=== PATIENT | female | born 1965 | race Two or more races ===

== ENCOUNTER 2016-11-30 11:40 | Inpatient (IN) | payer BC ==
[2016-11-30 13:03] VITALS: BMI 25.4
--- NOTE | 2016-11-30 16:32 | HP ---
COWS - Scale Resting Pulse: 0= [place] 80 or Below Sweatin= Chills/Flushing Restless Observation: 3= Extraneous Movement Pupil Size: 2= Moderately Dilated Bone or Joint Aches: 4=Acute Joint/Muscle Pain Runny Nose/ Eye Tearin= Runny Nose/Eyes GI Upset > 30mins: 1= Stomach Cramp (AND NAUSEA) Tremor Observation: 1= Tremor [place], Not Seen Yawning Observation: 1= 1-2x During Session Anxiety or Irritability: 2=Irritable/Anxious Goose Flesh Skin: 0=Smooth Skin COWS Score: 17 Admission ROS S - HPI Chief Complaint: DETOX TX FOR HEROIN DEPENDENCE Allergies/Adverse Reactions: Allergies Allergy/AdvReac Type Severity Reaction Status Date / Time No Known Allergies Allergy Verified 11/30/16 14:59 History of Present Illness: 51 Y/O H/ FEMALE WITH A HX OF HEROIN DEPENDENCE SEEKING DETOX [place] Exam Limitations: No Limitations - Ebola screening Have you traveled outside of the country in the last 21 days: No Have you had contact with anyone from an Ebola affected area: No Have you been sick,other than usual withdrawal symptoms: No Do you have a fever: No - Review of Systems Constitutional: Chills, Night Sweats, Changes in sleep (ON SLEEPING MED) EENT: reports: Blurred Vision (WEARS GLASSES), Tearing, Nose Congestion, Dental Problems (MISSING TEETH) Respiratory: reports: No Symptoms reported Cardiac: reports: Palpitations (IN THE PAST) GI: reports: Diarrhea, Nausea, Vomiting : reports: Frequency, Urgency Musculoskeletal: reports: Back Pain, Joint Pain, Muscle Pain, Other (HX SCOLIOSIS) Integumentary: reports: No Symptoms Reported Neuro: reports: Headache (HX MIGRAINES-TAKES PROPRANOLOL) Endocrine: reports: No Symptoms Reported Hematology: reports: No Symptoms Reported Psychiatric: reports: Orientated x3, Anxious, Depressed Other Systems: Reviewed and Negative Patient History - Patient Medical History Hx Anemia: No Hx Asthma: No Hx Chronic Obstructive Pulmonary Disease (COPD): No Hx Cancer: No Hx Cardiac Disorders: No Hx Congestive Heart Failure: No Hx Hypertension: No Hx Hypercholesterolemia: No Hx Pacemaker: No HX Cerebrovascular Accident: No Hx Seizures: No Hx Dementia: No Hx Diabetes: No Hx Gastrointestinal Disorders: No Hx Liver Disease: No Hx Genitourinary Disorders: No Hx Sexually Transmitted Disorders: No (NEGATIVE HX) Hx Renal Disease (ESRD): No Hx Thyroid Disease: No (HYPOTHYROIDISM ON SYNTHROID 25 MCG-NONCOMPLIANT) Hx Human Immunodeficiency Virus (HIV): No (negative hx in August 2013) Hx Hepatitis C: Yes (1995 tested positive; tx but not compliant) Hx Depression: Yes Hx Suicide Attempt: No (DENIES) Hx Bipolar Disorder: Yes (see med list) Hx Schizophrenia: No - Patient Surgical History Past Surgical History: Yes Hx Neurologic Surgery: No Hx Cataract Extraction: No Hx Cardiac Surgery: No Hx Lung Surgery: No Hx Breast Surgery: No Hx Breast Biopsy: No Hx Abdominal Surgery: No Hx Appendectomy: Yes (40 yrs ago) Hx Cholecystectomy: No Hx Genitourinary Surgery: No Hx Section: No Hx Orthopedic Surgery: No Other Surgical History: right eye sx in 10/2015 Anesthesia Reaction: No - PPD History Previous Implant?: Yes Documented Results: Negative w/proof Implanted On Prior [facility] Admission?: Yes Date: 12/23/15 Results: 0 mm PPD to be Administered?: No - Reproductive History Patient is a Female of Child Bearing Age (11 -55 yrs old): Yes Last Menstrual Period: 06/21/89 LMP comment: STOPPED AT AGE 25 Patient : No - Smoking Cessation Smoking history: Current every day smoker Have you smoked in the past 12 months: Yes Aproximately how many cigarettes per day: 10 Cigars Per Day: 0 Hx Chewing Tobacco Use: No Initiated information on smoking cessation: Yes 'Breaking Loose' booklet given: 11/30/16 - Substance & Tx. History Hx Alcohol Use: No (DENIES) Hx Substance Use: Yes (HEROIN) Substance Use Type: Heroin Hx Substance Use Treatment: Yes - Substances Abused Heroin Route: Inhalation Frequency: Daily Amount used: 2-3 bags Age of first use: 13 Date of Last Use: 11/29/16 Family Disease History - Family Disease History Family Disease History: CA: Grandparent (grandmother colon ca), Other: Mother ( heroin IV drug user,) Admission Physical Exam BHS - Vital Signs Vital Signs: Vital Signs - 24 hr 11/30/16 12:59 Temperature 96.5 F L Pulse Rate 76 Respiratory 18 Rate Blood Pressure 123/89 - Physical General Appearance: Yes: Moderate Distress, Irritable, Anxious HEENTM: Yes: EOMI, Normocephalic, [place], Pharynx Normal, Nasal Congestion, Rhinorrhea Respiratory: Yes: Chest Non-Tender, Lungs Clear, Normal Breath Sounds, No Respiratory Distress Neck: Yes: No masses,lesions,Nodules, Supple Breast: Yes: Breast Exam Deferred Cardiology: Yes: Regular Rhythm, Regular Rate, S1, S2 Abdominal: Yes: Normal Bowel Sounds, Non Tender, Soft Genitourinary: Yes: Other (N/C) Back: Yes: Within Normal Limits Musculoskeletal: Yes: full range of Motion, Gait Steady Extremities: Yes: Normal Range of Motion, Non-Tender 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, Fully Oriented, Alert Integumentary: Yes: Dry, Warm Lymphatic: Yes: Within Normal Limits - Diagnostic (1) Migraine Current Visit: Yes Status: Chronic Qualifiers: Migraine type: without aura (2) Nicotine dependence Current Visit: Yes Status: Acute Qualifiers: Nicotine product type: cigarettes Substance use status: in withdrawal Qualified Code(s): F17.213 - Nicotine dependence, cigarettes, with withdrawal (3) Hepatitis C Current Visit: Yes Status: Chronic Qualifiers: Viral hepatitis chronicity: chronic (4) Hypothyroid Current Visit: Yes Status: Chronic Comment: STATES NO CURRENT MED BUT PT WAS ON SYNTHROID--PT A POOR HISTORIAN. THYROID PROFILE DONE. PROVIDER TO F/U WITH RESULT AND RESTART MED IF NEEDED. Cleared for Admission [facility] - Detox or Rehab [facility] Level of Care: Medically Managed Detox Regimen/Protocol: Methadone [facility] Breath Alcohol Content Breath Alcohol Content: 0 Urine Pregancy Test - Result Urine Test Results: Negative- NO Line Present Urine Drug Screen - Results Drug Screen Negative: No Urine Drug Screen Results: OPI-Opiates
[2016-11-30] MEDS ORDERED: P-EPHED 60MG/TRIPROLIDI 2.5MG TABLET PO PRN (16:43)
[2016-11-30] MEDS ORDERED: IBUPROFEN 400 MG TABLET (FP) PO PRN (16:43)
[2016-11-30] MEDS ORDERED: ACETAMINOPHEN 325 MG TABLET (FP) PO PRN (16:43)
[2016-11-30] MEDS ORDERED: MAGNESIUM HYDROX 2400MG/30ML ORAL SUSPENSION 30 ML CUP PO PRN (16:43)
[2016-11-30] MEDS ORDERED: diphenhydrAMINE HCL 50 MG CAPSULE PO PRN (16:43)
[2016-11-30] MEDS ORDERED: LOPERAMIDE HCL 2 MG CAPSULE PO PRN (16:43)
[2016-11-30] MEDS ORDERED: MAG HYDROX/AL HYDROX/SIMETH 30 ML UNIT-DOSE CUP PO PRN (16:43)
[2016-11-30] MEDS ORDERED: MAGNESIUM CITRATE 300 ML BOTTLE PO PRN (16:43)
[2016-11-30] MEDS ORDERED: MENTHOL/PHENOL 1 EACH UD MM PRN (16:43)
[2016-11-30] MEDS ORDERED: guaiFENesin/D-METHORPHAN HB 10 ML UNIT-DOSE CUPS PO PRN (16:43)
[2016-11-30] MEDS ORDERED: METHADONE HCL 10 MG TABLET (FOR DETOX USE ONLY) PO ONE ×2 (17:30→23:00)
[2016-11-30] MEDS: diazePAM 5 MG TABLET PO PRN ×2 (18:18→22:35)
[2016-11-30] MEDS: NICOTINE 14 MG/24 HOURS TOPICAL PATCH TD SCH (18:26)
[2016-11-30 21:11] LABS: URINE APPEARANCE CLEAR; URINE BLOOD NEGATIVE (NEGATIVE); URINE COLOR AMBER; URINE GLUCOSE (UA) NEGATIVE (NEGATIVE); URINE KETONE NEGATIVE (NEGATIVE); URINE NITRITE NEGATIVE (NEGATIVE); URINE PROTEIN NEGATIVE (NEGATIVE); URINE UROBILINOGEN 4.0 E.U/dl E.U./dl (0.2-1.0)
[2016-11-30 21:15] LABS: URINE LEUK ESTERASE TRACE (NEGATIVE)
[2016-11-30 21:19] LABS: URINE BACTERIA RARE /hpf (NONE SEEN); URINE HYALINE CAST 1 /lpf; URINE MUCUS MANY; URINE RBC 2 /hpf (0-3); URINE WBC 8 /hpf (3-5)
[2016-11-30] MEDS: ARTIFICIAL TEARS (POLYVINYL ALCOHOL 1.4%) OPTH DROPS OU SCH (22:34)
[2016-11-30] MEDS: THIAMINE HCL 100 MG TABLET (FP) PO SCH (22:34)
[2016-11-30] MEDS: cloNIDine HCL 0.1 MG TABLET PO SCH (22:35)
[2016-12-01] MEDS ORDERED: METHADONE HCL 10 MG TABLET (FOR DETOX USE ONLY) PO ONE (10:00)
[2016-12-01 10:09] LABS: MCH 29.9 pg (25.7-33.7); MCHC 32.8 g/dl (32.0-36.0); MEAN CELL VOLUME 91.2 fl (80-96); MEAN PLT VOLUME 13.6 fl (7.5-11.1); PLATELET COUNT 125 K/MM3 (134-434); RDW 13.4 % (11.6-15.6); WHITE BLOOD COUNT 5.7 K/mm3 (4.0-10.0)
[2016-12-01] MEDS: cloNIDine HCL 0.1 MG TABLET PO SCH ×2 (10:56→22:23)
[2016-12-01] MEDS: diazePAM 5 MG TABLET PO PRN ×3 (10:56→22:23)
[2016-12-01] MEDS: PRENATAL VITAMINS W/ FOLIC ACID TABLET (FP) PO SCH (10:56)
--- NOTE | 2016-12-01 10:58 | EKG ---
Test Reason : Blood Pressure : / mmHG Vent. Rate : 063 BPM Atrial Rate : 063 BPM P-R Int : 146 ms QRS Dur : 092 ms QT Int : 438 ms P-R-T Axes : 045 010 014 degrees QTc Int : 448 ms NORMAL SINUS RHYTHM NONSPECIFIC T WAVE ABNORMALITY ABNORMAL ECG WHEN COMPARED WITH ECG OF 30-NOV-2016 17:46, T WAVE VARIATION Confirmed by PARAM DUARTE MD ([id number]) on 12/01/2016 10:57:51 AM Referred By: Beny Bryson Confirmed By:PARAM DUARTE MD
--- NOTE | 2016-12-01 10:58 | PN ---
BHS COWS - Scale Resting Pulse: 0= [place] 80 or Below Sweatin=Flushed/Facial Moisture Restless Observation: 1= Difficult to Sit Still Pupil Size: 0= Normal to Room Light Bone or Joint Aches: 2= Severe Diffuse Aches Runny Nose/ Eye Tearin= Runny Nose/Eyes GI Upset > 30mins: 0= None Tremor Observation of Outstretched Hands: 1= Tremor [place], Not Seen Yawning Observation: 1= 1-2x During Session Anxiety or Irritability: 1=Feels Anxious/Irritable Goose Flesh Skin: 0=Smooth Skin COWS Score: 10 S Progress Note (SOAP) Subjective: irritable agitation anxious sweats interrupted sleep Objective: 12/01/16 10:56 Vital Signs Temperature 98.2 F 12/01/16 09:58 Pulse Rate 64 12/01/16 09:58 Respiratory Rate 18 12/01/16 09:58 Blood Pressure 105/70 12/01/16 09:58 O2 Sat by Pulse Oximetry (%) Laboratory Tests 11/30/16 12/01/16 12/01/16 20:45 06:00 06:00 WBC 5.7 RBC 4.77 Hgb 14.3 D Hct 43.5 MCV 91.2 MCHC 32.8 RDW 13.4 Plt Count 125 L MPV 13.6 H D Sodium 144 Potassium 4.0 Chloride 108 H Urine Color Cynthia Urine Appearance Clear Urine pH 6.0 Ur Specific [place] 1.025 Urine Protein Negative Urine Glucose (UA) Negative Urine Ketones Negative Urine Blood Negative Urine Nitrite Negative Urine Bilirubin 2.0 Urine Urobilinogen 4.0 e.u/dl H Ur Leukocyte Esterase Trace H Urine RBC 2 Urine WBC 8 Ur Epithelial Cells Moderate Urine Bacteria Rare Hyaline Casts 1 Urine Mucus Many awake/alert ambulating no acute distress labs pending Assessment: 12/01/16 10:58 withdrawal sx Plan: continue detox increase fluids will f/u labs
[2016-12-01] MEDS: ARTIFICIAL TEARS (POLYVINYL ALCOHOL 1.4%) OPTH DROPS OU SCH ×2 (10:59→22:23)
--- NOTE | 2016-12-01 10:59 | EKG ---
Test Reason : Blood Pressure : / mmHG Vent. Rate : 067 BPM Atrial Rate : 067 BPM P-R Int : 132 ms QRS Dur : 092 ms QT Int : 396 ms P-R-T Axes : 047 006 026 degrees QTc Int : 418 ms NORMAL SINUS RHYTHM T WAVE ABNORMALITY, CONSIDER INFERIOR ISCHEMIA ABNORMAL ECG NO PREVIOUS ECGS AVAILABLE Confirmed by GERALD JUAREZ, PARAM ([id number]) on 12/01/2016 10:59:15 AM Referred By: Beny Bryson Confirmed By:PARAM DUARTE MD
[2016-12-01] MEDS: NICOTINE 14 MG/24 HOURS TOPICAL PATCH TD SCH (11:03)
[2016-12-01 11:13] LABS: ALBUMIN 3.7 g/dl (3.4-5.0); ALK PHOS 172 U/L (45-117); ANION GAP 11 (8-16); BILIRUBIN,TOTAL 0.7 mg/dL (0.2-1.0); CALCIUM 9.3 mg/dL (8.5-10.1); CO2 25 mmol/L (21-32); COCKROFT - GAULT 69.8785; CREATININE 0.9 mg/dL (0.55-1.02); GLUCOSE,RANDOM 81 mg/dL (74-106); SGOT/AST 90 U/L (15-37); SGPT/ALT 86 U/L (12-78); THYROID STIMULATING HORMONE 0.52 uIU/ml (0.358-3.74); THYROXINE (T4) 16.7 ug/dl (4.8-13.9); TOT PROT 7.4 g/dl (6.4-8.2)
[2016-12-01 11:23] LABS: T3 UPTAKE 24.5 % (30-39)
--- NOTE | 2016-12-01 14:14 | CONSULT ---
[facility] Psychiatric Consult - Data Date of interview: 12/01/16 Admission source: [facility] Identifying data: Another admission to [facility] for this 51 y/o female seeking detox treatment on for heroin dependence.Patient is single without children,homeless,unemployed and supported on SSI benefits. Substance Abuse History: - Smoking Cessation. Smoking history: Current every day smoker. Have you smoked in the past 12 months: Yes. Aproximately how many cigarettes per day: 10. Cigars Per Day: 0. Hx Chewing Tobacco Use: No. Initiated information on smoking cessation: Yes. 'Breaking Loose' booklet given : 11/30/16. - Substance & Tx. History. Hx Alcohol Use: No (DENIES). Hx Substance Use: Yes (HEROIN). Substance Use Type: Heroin. Hx Substance Use Treatment: Yes. - Substances Abused. Heroin. Route: Inhalation. Frequency : Daily. Amount used: 2-3 bags. Age of first use: 13. Date of Last Use: 11/29. Confirmed by patient. Medical History: Glaucoma,hypothyroidism and hepatitis C. Psychiatric History: Moderately sedated and disorganized historian.Patient presesnts with a history of multiple psychiatric hospitalizations ( [facility], [place]).Diagnosed with Bipolar Disorder and PTSD.Patient states that she is treated with seroquel 100 mg/daily + depakote 250 mg po bid + buspar (dose unknown).Ms Mcneill reports that she sees a psychiatrist at the " [facility] [place] " in [facility] (?).No reported history of suicide attempts. Physical/Sexual Abuse/Trauma History: Not discussed in this interview. Additional Comment: Urine Drug Screen Results: OPI-Opiates.Noted. Mental Status Exam - Mental Status Exam Alert and Oriented to: Time, Place (not oriented to,place;patient mistakenly believes that she is at [place]), Person Cognitive Function: Impaired (mildly) Patient Appearance: Well Groomed Mood: Withdrawn Affect: Constricted Patient Behavior: Sedated (moderately sedated), Fatigued Speech Pattern: Delayed, Slurred Voice Loudness: Moderately Soft/Quiet Thought Process: Disoriented Thought Disorder: Not Present Hallucinations: Denies Suicidal Ideation: Denies Homicidal Ideation: Denies Insight/Judgement: Poor Sleep: Well Appetite: Good Gait/Station: Other (slow but steady gait) Psychiatric Findings - Problem List ([place] 1, 2,3) (1) Opioid dependence Current Visit: Yes Status: Acute (2) Nicotine dependence Current Visit: Yes Status: Acute Qualifiers: Nicotine product type: cigarettes Substance use status: in withdrawal Qualified Code(s): F17.213 - Nicotine dependence, cigarettes, with withdrawal (3) Substance induced mood disorder Current Visit: Yes Status: Acute (4) Bipolar disorder Current Visit: Yes Status: Suspected Comment: Self-report. (5) Hepatitis C Current Visit: Yes Status: Chronic Qualifiers: Viral hepatitis chronicity: chronic (6) Hypothyroid Current Visit: Yes Status: Chronic Comment: STATES NO CURRENT MED BUT PT WAS ON SYNTHROID--PT A POOR HISTORIAN. THYROID PROFILE DONE. PROVIDER TO F/U WITH RESULT AND RESTART MED IF NEEDED. - Initial Treatment Plan Initial Treatment Plan: Psychoeducation.Detoxification.Will hold psychiatric medications (patient is too sedated and Low BP).Observation.Fall precautions.Medications are verified with [employer] at (scripts for seroquel 100 mg/hs + depakote 250 mg po tid on 11/24/16).No scripts necessary at discharge.Medications will be re-started upon improvement of cognitive status.
[2016-12-01] MEDS: THIAMINE HCL 100 MG TABLET (FP) PO SCH (22:34)
[2016-12-02] MEDS: LEVOTHYROXINE NA 25 MCG TABLET (FP) PO SCH (06:07)
[2016-12-02] MEDS ORDERED: METHADONE HCL 5 MG TABLET (FOR DETOX USE ONLY) PO ONE (10:00)
[2016-12-02] MEDS: ARTIFICIAL TEARS (POLYVINYL ALCOHOL 1.4%) OPTH DROPS OU SCH ×2 (11:00→22:53)
[2016-12-02] MEDS: PRENATAL VITAMINS W/ FOLIC ACID TABLET (FP) PO SCH (11:00)
[2016-12-02] MEDS: NICOTINE 14 MG/24 HOURS TOPICAL PATCH TD SCH (11:01)
[2016-12-02] MEDS: cloNIDine HCL 0.1 MG TABLET PO SCH ×2 (11:01→22:54)
--- NOTE | 2016-12-02 11:34 | PN ---
BHS COWS - Scale Resting Pulse: 0= [place] 80 or Below Sweatin=Flushed/Facial Moisture Restless Observation: 1= Difficult to Sit Still Pupil Size: 0= Normal to Room Light Bone or Joint Aches: 1= Mild Discomfort Runny Nose/ Eye Tearin= Nasal Congestion GI Upset > 30mins: 0= None Tremor Observation of Outstretched Hands: 1= Tremor [place], Not Seen Yawning Observation: 2= >3x During Session Anxiety or Irritability: 2=Irritable/Anxious Goose Flesh Skin: 0=Smooth Skin COWS Score: 10 S Progress Note (SOAP) Subjective: irritable agitation interrupted sleep sweats Objective: 12/02/16 11:33 Vital Signs Temperature 98.4 F 12/02/16 10:02 Pulse Rate 71 12/02/16 10:02 Respiratory Rate 20 12/02/16 10:02 Blood Pressure 106/72 12/02/16 10:02 O2 Sat by Pulse Oximetry (%) Laboratory Tests 11/30/16 12/01/16 12/01/16 20:45 06:00 06:00 WBC 5.7 RBC 4.77 Hgb 14.3 D Hct 43.5 MCV 91.2 MCHC 32.8 RDW 13.4 Plt Count 125 L MPV 13.6 H D Sodium 144 Potassium 4.0 Chloride 108 H Carbon Dioxide 25 Anion Gap 11 BUN 17 D Creatinine 0.9 Creat Clearance w eGFR > 60 Random Glucose 81 D Calcium 9.3 Total Bilirubin 0.7 D AST 90 H D ALT 86 H D Alkaline Phosphatase 172 H D Total Protein 7.4 Albumin 3.7 D TSH 0.52 Resin T3 Uptake 24.5 L* Urine Color Cynthia Urine Appearance Clear Urine pH 6.0 Ur Specific [place] 1.025 Urine Protein Negative Urine Glucose (UA) Negative Urine Ketones Negative Urine Blood Negative Urine Nitrite Negative Urine Bilirubin 2.0 Urine Urobilinogen 4.0 e.u/dl H Ur Leukocyte Esterase Trace H Urine RBC 2 Urine WBC 8 Ur Epithelial Cells Moderate Urine Bacteria Rare Hyaline Casts 1 Urine Mucus Many RPR Titer 12/01/16 06:00 WBC RBC Hgb Hct MCV MCHC RDW Plt Count MPV Sodium Potassium Chloride Carbon Dioxide Anion Gap BUN Creatinine Creat Clearance w eGFR Random Glucose Calcium Total Bilirubin AST ALT Alkaline Phosphatase Total Protein Albumin TSH Resin T3 Uptake Urine Color Urine Appearance Urine pH Ur Specific [place] Urine Protein Urine Glucose (UA) Urine Ketones Urine Blood Urine Nitrite Urine Bilirubin Urine Urobilinogen Ur Leukocyte Esterase Urine RBC Urine WBC Ur Epithelial Cells Urine Bacteria Hyaline Casts Urine Mucus RPR Titer Nonreactive awake/alert ambulating no acute distress Assessment: 12/02/16 11:34 withdrawal sx Plan: continue detox increase fluids
[2016-12-02] MEDS: diazePAM 5 MG TABLET PO PRN (16:36)
[2016-12-02] MEDS: THIAMINE HCL 100 MG TABLET (FP) PO SCH (22:54)
[2016-12-03] MEDS: LEVOTHYROXINE NA 25 MCG TABLET (FP) PO SCH (07:08)
[2016-12-03] MEDS ORDERED: METHADONE HCL 5 MG TABLET (FOR DETOX USE ONLY) PO ONE (10:00)
[2016-12-03] MEDS: PRENATAL VITAMINS W/ FOLIC ACID TABLET (FP) PO SCH (10:50)
[2016-12-03] MEDS: diazePAM 5 MG TABLET PO PRN (10:51)
[2016-12-03] MEDS: ARTIFICIAL TEARS (POLYVINYL ALCOHOL 1.4%) OPTH DROPS OU SCH ×2 (10:51→23:30)
[2016-12-03] MEDS: cloNIDine HCL 0.1 MG TABLET PO SCH ×2 (10:51→22:58)
[2016-12-03] MEDS: NICOTINE 14 MG/24 HOURS TOPICAL PATCH TD SCH (10:54)
[2016-12-03] MEDS ORDERED: hydrOXYzine PAMOATE 50 MG CAPSULE (FP) PO PRN (11:15)
[2016-12-03] MEDS ORDERED: DIVALPROEX SODIUM 250 MG TABLET E.C. (FP) PO STA (11:33)
--- NOTE | 2016-12-03 11:54 | PN ---
Psychiatric Progress Note Vital Signs: Vital Signs Period Temp Pulse Resp BP Sys/Mcnally Pulse Ox Last 24 Hr 98.4 F-99.5 F 64-75 18-18 109-138/75-77 Date of Session: 12/03/16 Chief Complaint:: My medications HPI: Patient has been hold psychiatric orders due to oversedated status, reports taking prior to admission: Depakote 250mg po tid. Seroquel 100mg po qhs. Buspar 10mg po bid. Clonidine 0.1 mg po bid Current Medications: Active Medications Generic Name Dose Route Start Last Admin Trade Name Freq PRN Reason Stop Dose Admin Acetaminophen 650 mg 11/30/16 16:43 Tylenol - PO Q4H PRN FEVER OR PAIN Al Hydroxide/Mg Hydroxide 30 ml 11/30/16 16:43 Mylanta Oral Suspension - PO Q6H PRN DYSPEPSIA Artificial Tears 1 drop 11/30/16 22:00 12/03/16 10:51 Artificial Tears OU 1 applic BID BOB Administration Buspirone HCl 10 mg 12/03/16 11:45 Buspar - PO BID BOB Clonidine 0.1 mg 11/30/16 22:00 12/03/16 10:51 Catapres - PO 0.1 mg BID BOB Administration Diazepam 10 mg 11/30/16 16:43 12/03/16 10:51 Valium - PO 12/03/16 16:42 10 mg Q4H PRN Administration WITHDRAWAL(CONT SUBST) Diphenhydramine HCl 50 mg 11/30/16 16:43 12/01/16 22:23 Benadryl - PO 50 mg HSMR1 PRN Administration INSOMNIA Divalproex Sodium 250 mg 12/03/16 22:00 Depakote - PO BID BOB Eucalyptus/Menthol/Phenol/Sorbitol 1 each 11/30/16 16:43 Cepastat Lozenge - MM Q4H PRN SORE THROAT Guaifenesin 10 ml 11/30/16 16:43 Robitussin Dm - PO Q6H PRN COUGH Hydroxyzine Pamoate 50 mg 12/03/16 11:15 Vistaril - PO Q4H PRN FOR ITCHING Ibuprofen 400 mg 11/30/16 16:43 Motrin - PO Q6H PRN SEVERE PAIN Levothyroxine Sodium 25 mcg 12/02/16 07:00 12/03/16 07:08 Synthroid - PO Not Given DAILY@0700 BOB Loperamide HCl 4 mg 11/30/16 16:43 Imodium - PO Q6H PRN DIARRHEA Magnesium Citrate 300 ml 11/30/16 16:43 Citroma - PO Q48H PRN CONSTIPATION Magnesium Hydroxide 30 ml 11/30/16 16:43 Milk Of Magnesia - PO DAILY PRN CONSTIPATION Methadone HCl 10 mg 12/04/16 10:00 Dolophine - PO 12/04/16 10:01 ONCE ONE Methadone HCl 5 mg 12/05/16 06:00 Dolophine - PO 12/05/16 06:01 ONCE@0600 ONE Nicotine 14 mg 11/30/16 17:30 12/03/16 10:54 Nicoderm Patch - TD 14 mg DAILY BOB Administration Nicotine Polacrilex 2 mg 11/30/16 16:43 Nicorette Gum - BC Q2H PRN NICOTINE REPLACEMENT RX Multivit/Folic Acid/Iron 1 tab 12/01/16 10:00 12/03/16 10:50 Vitamins (Sjr) - PO 1 tab DAILY BOB Administration Propranolol HCl 60 mg 12/01/16 10:00 12/03/16 10:51 Inderal La - PO 60 mg DAILY BOB Administration Pseudoephedrine/Triprolidine 1 combo 11/30/16 16:43 Actifed - PO TID PRN NASAL CONGESTION Quetiapine Fumarate 100 mg 12/03/16 22:00 Seroquel - PO HS BOB Thiamine HCl 100 mg 11/30/16 22:00 12/02/16 22:54 Vitamin B1 - PO Not Given HS BOB Medication(s) Change(s): Depakote 250mg po tid. Seroquel 100mg po qhs. Buspar 10mg po bid. Clonidine 0.1 mg po bid Mental Status Exam - Mental Status Exam Alert and Oriented to: Person Cognitive Function: Fair Patient Appearance: Well Groomed Mood: Suspicious, Withdrawn Affect: Flat Patient Behavior: Passive, Wandering Speech Pattern: Delayed Thought Process: Circumstantial Thought Disorder: Present Hallucinations: Denies Suicidal Ideation: Denies Homicidal Ideation: Denies Insight/Judgement: Fair Sleep: Difficulty falling asleep Appetite: Fair Muscle strength/Tone: Mild Hypotonicity Gait/Station: Shuffling Additional Comments: Depakote 250mg po tid. Seroquel 100mg po qhs. Buspar 10mg po bid. Clonidine 0.1 mg po bid Psychiatric Treatment Plan - Problem List (1) Nicotine dependence Current Visit: Yes Qualifiers: Nicotine product type: cigarettes Substance use status: in withdrawal Qualified Code(s): F17.213 - Nicotine dependence, cigarettes, with withdrawal (2) Opioid dependence Current Visit: Yes (3) Hypothyroid Current Visit: Yes Comment: STATES NO CURRENT MED BUT PT WAS ON SYNTHROID--PT A POOR HISTORIAN. THYROID PROFILE DONE. PROVIDER TO F/U WITH RESULT AND RESTART MED IF NEEDED. (4) Bipolar disorder Current Visit: Yes Comment: Self-report. (5) Weight decreased Current Visit: No (6) Bipolar 1 disorder Current Visit: No (7) Bipolar II disorder Current Visit: No (8) Cocaine dependence Current Visit: No Qualifiers: Substance use status: uncomplicated Qualified Code(s): F14.20 - Cocaine dependence, uncomplicated (9) PTSD (post-traumatic stress disorder) Current Visit: No Initial treatment plan: Depakote 250mg po tid. Seroquel 100mg po qhs. Buspar 10mg po bid. Clonidine 0.1 mg po bid
[2016-12-03] MEDS: busPIRone HCL 10 MG TABLET (FP) PO SCH ×2 (11:58→22:58)
--- NOTE | 2016-12-03 13:20 | PN ---
BHS Progress Note (SOAP) Subjective: irritable mood swings sweats agitation Objective: 12/03/16 13:19 Vital Signs Temperature 99.1 F 12/03/16 09:58 Pulse Rate 64 12/03/16 09:58 Respiratory Rate 18 12/03/16 09:58 Blood Pressure 138/75 12/03/16 09:58 O2 Sat by Pulse Oximetry (%) awake/alert ambulating no acute distress Assessment: 12/03/16 13:20 withdrawal sx pt was very difficult to re-direct pt to unit rules and what is expected by every one on the unit. pt became irrate, irritable, disruptive. counselor was involved in addressing the situation, how pt was doing the same. psych was ordered to evaluate pt and assist with her medication. Plan: continue detox increase fluids psych ordered.
[2016-12-03] MEDS: NICOTINE POLACRILEX 2 MG GUM BC PRN ×2 (18:29→21:25)
[2016-12-03] MEDS ORDERED: QUEtiapine FUMARATE 100 MG TABLET (FP) PO SCH (22:00)
[2016-12-03] MEDS: DIVALPROEX SODIUM 250 MG TABLET E.C. (FP) PO SCH (22:58)
[2016-12-03] MEDS: THIAMINE HCL 100 MG TABLET (FP) PO SCH (22:58)
[2016-12-04] MEDS: LEVOTHYROXINE NA 25 MCG TABLET (FP) PO SCH (07:06)
[2016-12-04] MEDS ORDERED: METHADONE HCL 10 MG TABLET (FOR DETOX USE ONLY) PO ONE (10:00)
--- NOTE | 2016-12-04 10:04 | PN ---
BHS Progress Note Note: pt is more cooperative and making reasonable decision regarding her aftercare. pt states she is feeling better and is ready to go to her next level of care rehab.
--- NOTE | 2016-12-04 10:07 | DS ---
[facility] Detox Discharge Summary Admission Date: 11/30/16 Discharge Date: 12/04/16 - History Present History: Cocaine Dependence, Opioid Dependence - Physical Exam Results Vital Signs: Vital Signs Temperature 97.7 F 12/04/16 08:01 Pulse Rate 69 12/04/16 08:01 Respiratory Rate 18 12/04/16 08:01 Blood Pressure 112/75 12/04/16 08:01 O2 Sat by Pulse Oximetry (%) - Treatment Hospital Course: Detox Protocol Followed, Detoxed Safely, Responded well, Discharged Condition Good, Rehab Referral Accepted - Medication Discharge Medications: Ambulatory Orders Quetiapine Fumarate [Seroquel -] 100 mg PO HS #30 tablet 12/31/14 Clonidine HCl [Catapres -] 0.1 mg PO BID 11/30/16 Dextran 70/Hypromellose [Artificial Tears Eye Drops] 1 drop OU BID 11/30/16 Divalproex [Depakote -] 250 mg PO TID 11/30/16 Propranolol HCl [Propranolol HCl ER] 60 mg PO DAILY 11/30/16 Buspirone HCl [Buspar -] 10 mg PO BID #60 tablet 12/03/16 Divalproex [Depakote -] 250 mg PO BID #60 tab 12/03/16 Quetiapine Fumarate [Seroquel] 100 mg PO HS #30 tablet 12/03/16 - Diagnosis (1) Nicotine dependence Current Visit: Yes Status: Chronic Qualifiers: Nicotine product type: cigarettes Substance use status: uncomplicated Qualified Code(s): F17.210 - Nicotine dependence, cigarettes, uncomplicated (2) Opioid dependence Current Visit: Yes Status: Chronic Qualifiers: Substance use status: uncomplicated Qualified Code(s): F11.20 - Opioid dependence, uncomplicated (3) Substance induced mood disorder Current Visit: Yes Status: Acute (4) Hepatitis C Current Visit: Yes Status: Chronic Qualifiers: Viral hepatitis chronicity: chronic (5) Hypothyroid Current Visit: Yes Status: Chronic (6) Migraine Current Visit: Yes Status: Chronic Qualifiers: Migraine type: without aura (7) Bipolar disorder Current Visit: Yes Status: Suspected (8) Weight decreased Current Visit: No Status: Acute (9) Bipolar 1 disorder Current Visit: No Status: Chronic (10) Bipolar II disorder Current Visit: No Status: Chronic (11) Cocaine dependence Current Visit: No Status: Chronic Qualifiers: Substance use status: uncomplicated Qualified Code(s): F14.20 - Cocaine dependence, uncomplicated (12) PTSD (post-traumatic stress disorder) Current Visit: No Status: Chronic - AMA Did Patient Leave Against Medical Advice: No
[2016-12-04 11:14] VITALS: BP 120/53; PULSE 63; TEMP 97.9
[2016-12-04] MEDS: ARTIFICIAL TEARS (POLYVINYL ALCOHOL 1.4%) OPTH DROPS OU SCH (11:50)
[2016-12-04] MEDS: busPIRone HCL 10 MG TABLET (FP) PO SCH (11:50)
[2016-12-04] MEDS: cloNIDine HCL 0.1 MG TABLET PO SCH (11:50)
[2016-12-04] MEDS: PRENATAL VITAMINS W/ FOLIC ACID TABLET (FP) PO SCH (11:51)
[2016-12-04] MEDS: NICOTINE 14 MG/24 HOURS TOPICAL PATCH TD SCH (11:51)
[2016-12-04] MEDS: DIVALPROEX SODIUM 250 MG TABLET E.C. (FP) PO SCH (11:51)
[2016-12-05] MEDS ORDERED: METHADONE HCL 5 MG TABLET (FOR DETOX USE ONLY) PO ONE (06:00)
== END 2016-12-04 11:50 | disposition home or self-care (01) | DRG 773 ==
LOC: YASAS 11:40 → Y6N 16:59
PROVIDERS: ADMIT Internal Medicine; ATTEND Internal Medicine
PROC: HZ2ZZZZ Detoxification Services for Substance Abuse Treatment (ICD-10-PCS; principal; 2016-11-30)
DX: F11.23 Opioid dependence with withdrawal (principal); F14.20 Cocaine dependence, uncomplicated; F17.210 Nicotine dependence, cigarettes, uncomplicated; F31.81 Bipolar II disorder; F43.10 Post-traumatic stress disorder, unspecified; E03.9 Hypothyroidism, unspecified; B18.2 Chronic viral hepatitis C; G43.909 Migraine, unspecified, not intractable, without status migrainosus; H40.9 Unspecified glaucoma; Z87.898 Personal history of other specified conditions
CPT/HCPCS: 36415; 80053; 81003; 81015; 84436; 84443; 84479; 85027; 86593; 93005; 93010

== ENCOUNTER 2017-02-02 13:46 | Inpatient (IN) | payer BC ==
[2017-02-02 15:10] VITALS: BMI 18.1
--- NOTE | 2017-02-02 16:41 | HP ---
COWS - Scale Resting Pulse: 1= [place] 81-100 Sweatin=Flushed/Facial Moisture Restless Observation: 3= Extraneous Movement Pupil Size: 2= Moderately Dilated Bone or Joint Aches: 2= Severe Diffuse Aches Runny Nose/ Eye Tearin= Runny Nose/Eyes GI Upset > 30mins: 3= Vomiting/Diarrhea Tremor Observation: 2= Slight Tremor Visible Yawning Observation: 2= >3x During Session Anxiety or Irritability: 2=Irritable/Anxious Goose Flesh Skin: 0=Smooth Skin COWS Score: 21 Admission ROS S - HPI Chief Complaint: i need help to stop using heroin Allergies/Adverse Reactions: Allergies Allergy/AdvReac Type Severity Reaction Status Date / Time No Known Allergies Allergy Verified 02/02/17 16:37 History of Present Illness: this 51 years old female with heroin dependence,seeking detox,last treatment 06/06 to 12/04/16 multiple migraine,menopause at age 25,bipolar disorder depression,dry eye syndrome, hypothyroidism,dtop medication 7 months ago,hepatitis c longest period of sobriety 16 months Exam Limitations: No Limitations - Ebola screening Have you traveled outside of the country in the last 21 days: No Have you had contact with anyone from an Ebola affected area: No Have you been sick,other than usual withdrawal symptoms: No Do you have a fever: No - Review of Systems Constitutional: Chills, Loss of Appetite, Night Sweats, Changes in sleep, Weakness, Unintentional Wgt. Loss EENT: reports: Tearing, Nose Congestion Respiratory: reports: No Symptoms reported Cardiac: reports: No Symptoms Reported GI: reports: Diarrhea, Nausea, Vomiting, Abdominal cramping : reports: No Symptoms Reported Musculoskeletal: reports: Back Pain, Joint Pain, Muscle Pain, Joint Stiffness Integumentary: reports: Dryness Neuro: reports: Headache, Tremors Endocrine: reports: No Symptoms Reported Hematology: reports: No Symptoms Reported Psychiatric: reports: No Sypmtoms Reported, Judgement Intact, Mood/Affect Appropiate, Depressed, other (bipolar disoeder) Patient History - Patient Medical History Hx Anemia: No Hx Asthma: No Hx Chronic Obstructive Pulmonary Disease (COPD): No Hx Cancer: No Hx Cardiac Disorders: No Hx Congestive Heart Failure: No Hx Hypertension: No Hx Hypercholesterolemia: No Hx Pacemaker: No HX Cerebrovascular Accident: No Hx Seizures: No Hx Dementia: No Hx Diabetes: No Hx Gastrointestinal Disorders: No Hx Liver Disease: No Hx Genitourinary Disorders: No Hx Sexually Transmitted Disorders: No (NEGATIVE HX) Hx Renal Disease (ESRD): No Hx Thyroid Disease: No (HYPOTHYROIDISM ON SYNTHROID 25 MCG-NONCOMPLIANT) Hx Human Immunodeficiency Virus (HIV): No (negative hx in August 2013) Hx Hepatitis C: Yes (1996 tested positive; tx but not compliant) Hx Depression: Yes (bipolar disorder) Hx Suicide Attempt: No (DENIES) Hx Bipolar Disorder: Yes (see med list) Hx Schizophrenia: No Other Medical History: no suicidal,no homicidal,stop taking thyroid 6 months ago - Patient Surgical History Past Surgical History: Yes Hx Neurologic Surgery: No Hx Cataract Extraction: No Hx Cardiac Surgery: No Hx Lung Surgery: No Hx Breast Surgery: No Hx Breast Biopsy: No Hx Abdominal Surgery: No Hx Appendectomy: Yes (40 yrs ago) Hx Cholecystectomy: No Hx Genitourinary Surgery: No Hx Section: No Hx Orthopedic Surgery: No Other Surgical History: right eye sx in 10/2015 Anesthesia Reaction: No - PPD History Previous Implant?: Yes Documented Results: Negative w/o proof Implanted On Prior R Admission?: Yes Date: 12/23/15 Results: 0 mm PPD to be Administered?: Yes - Reproductive History Patient is a Female of Child Bearing Age (11 -55 yrs old): Yes Last Menstrual Period: 06/21/89 Patient : No - Smoking Cessation Smoking history: Current every day smoker Have you smoked in the past 12 months: Yes Aproximately how many cigarettes per day: 10 Cigars Per Day: 0 Hx Chewing Tobacco Use: No Initiated information on smoking cessation: Yes 'Breaking Loose' booklet given: 02/02/17 - Substance & Tx. History Hx Alcohol Use: No Hx Substance Use: Yes Substance Use Type: Heroin Hx Substance [facility] - Substances Abused Heroin Route: Inhalation Frequency: Daily Amount used: 2-3 bags Age of first use: 13 Date of Last Use: 02/02/17 Family Disease History - Family Disease History Family Disease History: CA: Grandparent (grandmother colon ca), Other: Mother ( heroin IV drug user,) Admission Physical Exam BHS - Vital Signs Vital Signs: Vital Signs - 24 hr 02/02/17 15:07 Temperature 98.0 F Pulse Rate 86 Respiratory 16 Rate Blood Pressure 126/86 - Physical General Appearance: Yes: Moderate Distress, Tremorous, Irritable, Sweating, Anxious HEENTM: Yes: Normal ENT Inspection, Normocephalic, [place], Pharynx Normal Respiratory: Yes: Lungs Clear, Normal Breath Sounds, No Respiratory Distress Neck: Yes: Within Normal Limits, Supple, Trachea in good position Breast: Yes: Breast Exam Deferred Cardiology: Yes: Within Normal Limits, Regular Rhythm, Regular Rate, S1, S2 Abdominal: Yes: Within Normal Limits, Normal Bowel Sounds, Non Tender, Flat, Soft Genitourinary: Yes: Within Normal Limits Back: Yes: Muscle Spasm Musculoskeletal: Yes: Back pain, Joint Stiffness, Muscle Pain Extremities: Yes: Tremors Neurological: Yes: joint special operations II-XII NML intact, Fully Oriented, Alert, Motor Strength 5/5 Integumentary: Yes: Dry Lymphatic: Yes: Within Normal Limits - Diagnostic (1) Opioid dependence with withdrawal Current Visit: Yes Status: Acute (2) Weight decreased Current Visit: No Status: Acute (3) Hepatitis C Current Visit: No Status: Chronic Qualifiers: Viral hepatitis chronicity: chronic (4) Hypothyroid Current Visit: No Status: Chronic Comment: STATES NO CURRENT MED BUT PT WAS ON SYNTHROID--PT A POOR HISTORIAN. THYROID PROFILE DONE. PROVIDER TO F/U WITH RESULT AND RESTART MED IF NEEDED. (5) Migraine Current Visit: No Status: Chronic Qualifiers: Migraine type: without aura (6) PTSD (post-traumatic stress disorder) Current Visit: No Status: Chronic (7) Nicotine dependence Current Visit: No Status: Chronic Qualifiers: Nicotine product type: cigarettes Substance use status: uncomplicated Qualified Code(s): F17.210 - Nicotine dependence, cigarettes, uncomplicated (8) Bipolar disorder Current Visit: No Status: Suspected Comment: Self-report. Cleared for Admission S - Detox or Rehab [facility] Level of Care: Medically Managed Detox Regimen/Protocol: Methadone [facility] Breath Alcohol Content Breath Alcohol Content: 0 Urine Pregancy Test - Result Urine Test Results: Negative- NO Line Present Urine Drug Screen - Results Drug Screen Negative: No Urine Drug Screen Results: OPI-Opiates, MTD-Methadone
[2017-02-02] MEDS ORDERED: hydrOXYzine PAMOATE 25 MG CAPSULE (FP) PO PRN (17:20)
[2017-02-02] MEDS ORDERED: MENTHOL/PHENOL 1 EACH UD MM PRN (17:20)
[2017-02-02] MEDS ORDERED: ACETAMINOPHEN 325 MG TABLET (FP) PO PRN (17:20)
[2017-02-02] MEDS ORDERED: guaiFENesin/D-METHORPHAN HB 10 ML UNIT-DOSE CUPS PO PRN (17:20)
[2017-02-02] MEDS ORDERED: IBUPROFEN 400 MG TABLET (FP) PO PRN (17:20)
[2017-02-02] MEDS ORDERED: MAGNESIUM CITRATE 300 ML BOTTLE PO PRN (17:20)
[2017-02-02] MEDS ORDERED: P-EPHED 60MG/TRIPROLIDI 2.5MG TABLET PO PRN (17:20)
[2017-02-02] MEDS ORDERED: MAG HYDROX/AL HYDROX/SIMETH 30 ML UNIT-DOSE CUP PO PRN (17:20)
[2017-02-02] MEDS ORDERED: MAGNESIUM HYDROX 2400MG/30ML ORAL SUSPENSION 30 ML CUP PO PRN (17:20)
[2017-02-02] MEDS ORDERED: LOPERAMIDE HCL 2 MG CAPSULE PO PRN (17:20)
[2017-02-02] MEDS ORDERED: METHADONE HCL 10 MG TABLET (FOR DETOX USE ONLY) PO ONE ×2 (18:15→23:00)
[2017-02-02] MEDS ORDERED: QUEtiapine FUMARATE 100 MG TABLET (FP) PO ONE (22:00)
[2017-02-02] MEDS: cloNIDine HCL 0.1 MG TABLET PO SCH (22:44)
[2017-02-02] MEDS: ARTIFICIAL TEARS (POLYVINYL ALCOHOL 1.4%) OPTH DROPS OS SCH (22:44)
[2017-02-02] MEDS: THIAMINE HCL 100 MG TABLET (FP) PO SCH (22:45)
[2017-02-02 23:21] LABS: URINE APPEARANCE SLCLOUDY; URINE BLOOD NEGATIVE (NEGATIVE); URINE COLOR AMBER; URINE GLUCOSE (UA) NEGATIVE (NEGATIVE); URINE KETONE NEGATIVE (NEGATIVE); URINE LEUK ESTERASE NEGATIVE (NEGATIVE); URINE NITRITE NEGATIVE (NEGATIVE); URINE PROTEIN NEGATIVE (NEGATIVE); URINE UROBILINOGEN 4.0 E.U/dl mg/dL (0.2-1.0)
[2017-02-03] MEDS ORDERED: METHADONE HCL 10 MG TABLET (FOR DETOX USE ONLY) PO ONE (10:00)
[2017-02-03 10:21] LABS: MCH 29.5 pg (25.7-33.7); MCHC 32.8 g/dl (32.0-36.0); MEAN CELL VOLUME 90.1 fl (80-96); MEAN PLT VOLUME 13.5 fl (7.5-11.1); PLATELET COUNT 125 K/MM3 (134-434); RDW 12.6 % (11.6-15.6); WHITE BLOOD COUNT 5.1 K/mm3 (4.0-10.0)
[2017-02-03 10:33] LABS: ALBUMIN 3.5 g/dl (3.4-5.0); ANION GAP 5 (8-16); CALCIUM 8.9 mg/dL (8.5-10.1); CO2 29 mmol/L (21-32); CREATININE 0.8 mg/dL (0.55-1.02); GLUCOSE,RANDOM 89 mg/dL (74-106); SGOT/AST 75 U/L (15-37); SGPT/ALT 80 U/L (12-78)
[2017-02-03 10:35] LABS: ALK PHOS 159 U/L (45-117); BILIRUBIN,TOTAL 0.4 mg/dL (0.2-1.0); TOT PROT 6.9 g/dl (6.4-8.2)
--- NOTE | 2017-02-03 10:36 | CONSULT ---
[facility] Psychiatric Consult - Data Date of interview: 02/03/17 Admission source: [facility] Identifying data: This is 51 years old female with history of Bipolar disorder, PTSD, intoxicated with: Opioids, Copcaine and Nicotine Substance Abuse History: - Smoking Cessation. Smoking history: Current every day smoker. Have you smoked in the past 12 months: Yes. Aproximately how many cigarettes per day: 10. Cigars Per Day: 0. Hx Chewing Tobacco Use: No. Initiated information on smoking cessation: Yes. 'Breaking Loose' booklet given : 02/02/17. - Substance & Tx. History. Hx Alcohol Use: No. Hx Substance Use: Yes. Substance Use Type: Heroin. Hx Substance Use Treatment: Yes [facility] - Substances Abused. Heroin. Route: Inhalation. Frequency: Daily. Amount used: 2-3 bags. Age of first use: 13. Date of Last Use: 02/02/17 Medical History: Weight loss history, Hypothyroiditis, HepC+, Migraine history Psychiatric History: Patient reports history of Bipolar disorder, PTSD, reports most recent psychiatorc admission at [facility] on 02/2016 for safety, reports currently taking: Buspar 10mg po bid. Seroquel 100mg po qhs Physical/Sexual Abuse/Trauma History: Denies Additional Comment: Buspar 10mg po bid. Seroquel 100mg po qhs Mental Status Exam - Mental Status Exam Alert and Oriented to: Person Cognitive Function: Fair Patient Appearance: Unkempt Mood: Sad Speech Pattern: Delayed Voice Loudness: Mildly Soft/Quiet Thought Process: Circumstantial Thought Disorder: Being Controlled Hallucinations: Denies Suicidal Ideation: Denies Homicidal Ideation: Denies Insight/Judgement: Fair Sleep: Difficulty falling asleep Appetite: Weight loss Muscle strength/Tone: Mild Hypotonicity Gait/Station: Normal Additional Comments: Buspar 10mg po bid. Seroquel 100mg po qhs Psychiatric Findings - Problem List ([place] 1, 2,3) (1) Opioid dependence with withdrawal Current Visit: Yes Status: Acute (2) Bipolar 1 disorder Current Visit: No Status: Chronic (3) Cocaine dependence Current Visit: No Status: Chronic Qualifiers: Substance use status: uncomplicated Qualified Code(s): F14.20 - Cocaine dependence, uncomplicated (4) Hypothyroid Current Visit: No Status: Chronic Comment: STATES NO CURRENT MED BUT PT WAS ON SYNTHROID--PT A POOR HISTORIAN. THYROID PROFILE DONE. PROVIDER TO F/U WITH RESULT AND RESTART MED IF NEEDED. (5) Nicotine dependence Current Visit: No Status: Chronic Qualifiers: Nicotine product type: cigarettes Substance use status: uncomplicated Qualified Code(s): F17.210 - Nicotine dependence, cigarettes, uncomplicated (6) Opioid dependence Current Visit: No Status: Chronic Qualifiers: Substance use status: uncomplicated Qualified Code(s): F11.20 - Opioid dependence, uncomplicated (7) PTSD (post-traumatic stress disorder) Current Visit: No Status: Chronic (8) Bipolar disorder Current Visit: No Status: Suspected Comment: Self-report. (9) Drug-induced mood disorder Current Visit: Yes Status: Acute - Initial Treatment Plan Initial Treatment Plan: Buspar 10mg po bid. Seroquel 100mg po qhs
[2017-02-03] MEDS: PRENATAL VITAMINS W/ FOLIC ACID TABLET (FP) PO SCH (10:53)
[2017-02-03] MEDS: cloNIDine HCL 0.1 MG TABLET PO SCH ×2 (10:53→22:18)
[2017-02-03] MEDS: ARTIFICIAL TEARS (POLYVINYL ALCOHOL 1.4%) OPTH DROPS OS SCH ×2 (10:53→22:19)
[2017-02-03] MEDS: busPIRone HCL 10 MG TABLET (FP) PO SCH ×2 (10:55→22:18)
[2017-02-03] MEDS: NICOTINE POLACRILEX 2 MG GUM BC PRN ×2 (10:57→22:21)
[2017-02-03] MEDS: diazePAM 5 MG TABLET PO PRN ×2 (10:57→22:18)
--- NOTE | 2017-02-03 11:32 | PN ---
BHS COWS - Scale Resting Pulse: 0= [place] 80 or Below Sweatin=Flushed/Facial Moisture Restless Observation: 1= Difficult to Sit Still Pupil Size: 0= Normal to Room Light Bone or Joint Aches: 2= Severe Diffuse Aches Runny Nose/ Eye Tearin= Nasal Congestion GI Upset > 30mins: 1= Stomach Cramp Tremor Observation of Outstretched Hands: 2= Slight Tremor Visible Yawning Observation: 1= 1-2x During Session Anxiety or Irritability: 2=Irritable/Anxious Goose Flesh Skin: 0=Smooth Skin COWS Score: 12 BHS Progress Note (SOAP) Subjective: agitation anxiety sweats shakes Objective: 02/03/17 11:33 Vital Signs Temperature 97.3 F L 02/03/17 06:24 Pulse Rate 58 L 02/03/17 06:24 Respiratory Rate 16 02/03/17 06:24 Blood Pressure 122/90 02/03/17 06:24 O2 Sat by Pulse Oximetry (%) Laboratory Tests 02/02/17 02/03/17 02/03/17 23:11 06:00 06:00 WBC 5.1 RBC 4.76 Hgb 14.0 Hct 42.9 MCV 90.1 MCH 29.5 MCHC 32.8 RDW 12.6 Plt Count 125 L MPV 13.5 H Sodium 141 Potassium 3.5 Chloride 107 Carbon Dioxide 29 Anion Gap 5 L BUN 12 D Creatinine 0.8 Creat Clearance w eGFR > 60 Random Glucose 89 Calcium 8.9 Total Bilirubin 0.4 D AST 75 H ALT 80 H Alkaline Phosphatase 159 H Total Protein 6.9 Albumin 3.5 TSH Free T4 Resin T3 Uptake Urine Color Cynthia Urine Appearance Slcloudy Urine pH 5.0 Urine Protein Negative Urine Glucose (UA) Negative Urine Ketones Negative Urine Blood Negative Urine Nitrite Negative Urine Bilirubin 2.0 Urine Urobilinogen 4.0 e.u/dl H Ur Leukocyte Esterase Negative 02/03/17 06:00 WBC RBC Hgb Hct MCV MCH MCHC RDW Plt Count MPV Sodium Potassium Chloride Carbon Dioxide Anion Gap BUN Creatinine Creat Clearance w eGFR Random Glucose Calcium Total Bilirubin AST ALT Alkaline Phosphatase Total Protein Albumin TSH Cancelled Free T4 Cancelled Resin T3 Uptake Cancelled Urine Color Urine Appearance Urine pH Urine Protein Urine Glucose (UA) Urine Ketones Urine Blood Urine Nitrite Urine Bilirubin Urine Urobilinogen Ur Leukocyte Esterase awake/alert ambulating no acute distress Assessment: 02/03/17 11:33 withdrawal sx Plan: continue detox increase fluids
[2017-02-03 14:31] LABS: T3 UPTAKE 23.5 % (30-39)
[2017-02-03 14:38] LABS: THYROID STIMULATING HORMONE 1.02 uIU/ml (0.358-3.74)
--- NOTE | 2017-02-03 20:01 | EKG ---
Test Reason : Blood Pressure : / mmHG Vent. Rate : 064 BPM Atrial Rate : 064 BPM P-R Int : 154 ms QRS Dur : 104 ms QT Int : 410 ms P-R-T Axes : 048 004 024 degrees QTc Int : 422 ms NORMAL SINUS RHYTHM NORMAL ECG WHEN COMPARED WITH ECG OF 01-DEC-2016 06:04, NO SIGNIFICANT CHANGE WAS FOUND Confirmed by YOAV CHANDLER MD ([id number]) on 02/03/2017 8:01:14 PM Referred By: Confirmed By:YOAV CHANDLER MD
[2017-02-03] MEDS: THIAMINE HCL 100 MG TABLET (FP) PO SCH (22:18)
[2017-02-03] MEDS: QUEtiapine FUMARATE 100 MG TABLET (FP) PO SCH (22:18)
[2017-02-04] MEDS ORDERED: METHADONE HCL 5 MG TABLET (FOR DETOX USE ONLY) PO ONE (10:00)
[2017-02-04] MEDS: busPIRone HCL 10 MG TABLET (FP) PO SCH ×2 (10:41→22:18)
[2017-02-04] MEDS: diazePAM 5 MG TABLET PO PRN ×2 (10:41→16:55)
[2017-02-04] MEDS: cloNIDine HCL 0.1 MG TABLET PO SCH ×2 (10:41→22:18)
[2017-02-04] MEDS: PRENATAL VITAMINS W/ FOLIC ACID TABLET (FP) PO SCH (10:41)
[2017-02-04] MEDS: ARTIFICIAL TEARS (POLYVINYL ALCOHOL 1.4%) OPTH DROPS OS SCH ×2 (10:42→22:18)
[2017-02-04] MEDS: NICOTINE POLACRILEX 2 MG GUM BC PRN ×2 (10:45→22:21)
--- NOTE | 2017-02-04 11:33 | PN ---
BHS COWS - Scale Resting Pulse: 1= [place] 81-100 Sweatin=Flushed/Facial Moisture Restless Observation: 1= Difficult to Sit Still Pupil Size: 0= Normal to Room Light Bone or Joint Aches: 2= Severe Diffuse Aches Runny Nose/ Eye Tearin= Nasal Congestion GI Upset > 30mins: 0= None Tremor Observation of Outstretched Hands: 1= Tremor [place], Not Seen Yawning Observation: 2= >3x During Session Anxiety or Irritability: 2=Irritable/Anxious Goose Flesh Skin: 0=Smooth Skin COWS Score: 12 BHS Progress Note (SOAP) Subjective: sleepy tired interrupted sleep agitation sweats Objective: 02/04/17 11:32 Vital Signs Temperature 98.2 F 02/04/17 10:40 Pulse Rate 81 02/04/17 10:40 Respiratory Rate 18 02/04/17 10:40 Blood Pressure 118/75 02/04/17 10:40 O2 Sat by Pulse Oximetry (%) Laboratory Tests 02/02/17 02/03/17 02/03/17 23:11 06:00 06:00 WBC 5.1 RBC 4.76 Hgb 14.0 Hct 42.9 MCV 90.1 MCH 29.5 MCHC 32.8 RDW 12.6 Plt Count 125 L MPV 13.5 H Sodium 141 Potassium 3.5 Chloride 107 Carbon Dioxide 29 Anion Gap 5 L BUN 12 D Creatinine 0.8 Creat Clearance w eGFR > 60 Random Glucose 89 Calcium 8.9 Total Bilirubin 0.4 D AST 75 H ALT 80 H Alkaline Phosphatase 159 H Total Protein 6.9 Albumin 3.5 TSH 1.02 D Free T4 1.10 Resin T3 Uptake 23.5 L* D Urine Color Cynthia Urine Appearance Slcloudy Urine pH 5.0 Ur Specific [place] 1.025 Urine Protein Negative Urine Glucose (UA) Negative Urine Ketones Negative Urine Blood Negative Urine Nitrite Negative Urine Bilirubin 2.0 Urine Urobilinogen 4.0 e.u/dl H Ur Leukocyte Esterase Negative RPR Titer 02/03/17 02/03/17 06:00 06:00 WBC RBC Hgb Hct MCV MCH MCHC RDW Plt Count MPV Sodium Potassium Chloride Carbon Dioxide Anion Gap BUN Creatinine Creat Clearance w eGFR Random Glucose Calcium Total Bilirubin AST ALT Alkaline Phosphatase Total Protein Albumin TSH Cancelled Free T4 Cancelled Resin T3 Uptake Cancelled Urine Color Urine Appearance Urine pH Ur Specific [place] Urine Protein Urine Glucose (UA) Urine Ketones Urine Blood Urine Nitrite Urine Bilirubin Urine Urobilinogen Ur Leukocyte Esterase RPR Titer Nonreactive awake/alert ambulating no acute distress Assessment: 02/04/17 11:32 withdrawal sx Plan: continue detox increase fluids
[2017-02-04] MEDS: QUEtiapine FUMARATE 100 MG TABLET (FP) PO SCH (22:19)
[2017-02-04] MEDS: THIAMINE HCL 100 MG TABLET (FP) PO SCH (22:19)
[2017-02-04] MEDS: diphenhydrAMINE HCL 50 MG CAPSULE PO PRN (22:19)
[2017-02-05] MEDS ORDERED: METHADONE HCL 5 MG TABLET (FOR DETOX USE ONLY) PO ONE (10:00)
[2017-02-05] MEDS: busPIRone HCL 10 MG TABLET (FP) PO SCH ×2 (10:09→22:34)
[2017-02-05] MEDS: PRENATAL VITAMINS W/ FOLIC ACID TABLET (FP) PO SCH (10:09)
[2017-02-05] MEDS: cloNIDine HCL 0.1 MG TABLET PO SCH ×2 (10:09→22:14)
[2017-02-05] MEDS: ARTIFICIAL TEARS (POLYVINYL ALCOHOL 1.4%) OPTH DROPS OS SCH ×2 (10:10→22:14)
[2017-02-05] MEDS: NICOTINE POLACRILEX 2 MG GUM BC PRN ×3 (10:13→22:17)
--- NOTE | 2017-02-05 11:50 | PN ---
BHS Progress Note (SOAP) Subjective: sweats agitation tired Objective: 02/05/17 11:49 Vital Signs Temperature 99.1 F 02/05/17 10:00 Pulse Rate 82 02/05/17 10:00 Respiratory Rate 18 02/05/17 10:00 Blood Pressure 138/91 02/05/17 10:00 O2 Sat by Pulse Oximetry (%) awake/alert ambulating no acute distress Assessment: 02/05/17 11:49 withdrawal sx Plan: continue detox increase fluids
[2017-02-05] MEDS: diphenhydrAMINE HCL 50 MG CAPSULE PO PRN (22:14)
[2017-02-05] MEDS: THIAMINE HCL 100 MG TABLET (FP) PO SCH (22:14)
[2017-02-05] MEDS: QUEtiapine FUMARATE 100 MG TABLET (FP) PO SCH (22:14)
[2017-02-06] MEDS ORDERED: METHADONE HCL 10 MG TABLET (FOR DETOX USE ONLY) PO ONE (10:00)
[2017-02-06] MEDS: busPIRone HCL 10 MG TABLET (FP) PO SCH ×2 (10:43→23:02)
[2017-02-06] MEDS: PRENATAL VITAMINS W/ FOLIC ACID TABLET (FP) PO SCH (10:43)
[2017-02-06] MEDS: cloNIDine HCL 0.1 MG TABLET PO SCH ×2 (10:43→23:02)
[2017-02-06] MEDS: ARTIFICIAL TEARS (POLYVINYL ALCOHOL 1.4%) OPTH DROPS OS SCH ×2 (10:43→23:23)
--- NOTE | 2017-02-06 14:44 | PN ---
S Progress Note (SOAP) Subjective: alert,irritable,interrupted sleep Objective: 02/06/17 14:43 Vital Signs Temperature 99.1 F 02/06/17 10:01 Pulse Rate 78 02/06/17 10:01 Respiratory Rate 16 02/06/17 10:01 Blood Pressure 111/82 02/06/17 10:01 O2 Sat by Pulse Oximetry (%) Assessment: 02/06/17 14:43 withdrawal symptom Plan: continue detox,discharge in am
[2017-02-06] MEDS: THIAMINE HCL 100 MG TABLET (FP) PO SCH (23:02)
[2017-02-06] MEDS: QUEtiapine FUMARATE 100 MG TABLET (FP) PO SCH (23:02)
[2017-02-07] MEDS ORDERED: METHADONE HCL 5 MG TABLET (FOR DETOX USE ONLY) PO ONE (06:00)
[2017-02-07] MEDS: ARTIFICIAL TEARS (POLYVINYL ALCOHOL 1.4%) OPTH DROPS OS SCH (09:33)
[2017-02-07] MEDS: cloNIDine HCL 0.1 MG TABLET PO SCH (09:34)
[2017-02-07] MEDS: PRENATAL VITAMINS W/ FOLIC ACID TABLET (FP) PO SCH (09:34)
[2017-02-07] MEDS: busPIRone HCL 10 MG TABLET (FP) PO SCH (09:34)
--- NOTE | 2017-02-07 10:41 | DS ---
[facility] Detox Discharge Summary Admission Date: 02/02/17 Discharge Date: 02/07/17 - History Present History: Opioid Dependence Additional Comments: FOLLOW UP WITH [facility] Pertinent Past History: WEIGHT LOSS HEPATITIS C HYPOTHYROIDISM MIGRAINE PTS NICOTINE DEPENDENCE BIPOLAR DISORDER - Physical Exam Results Vital Signs: Vital Signs Temperature 98.3 F 02/07/17 06:37 Pulse Rate 66 02/07/17 06:37 Respiratory Rate 16 02/07/17 06:37 Blood Pressure 101/66 02/07/17 06:37 O2 Sat by Pulse Oximetry (%) Pertinent Admission Physical Exam Findings: WITHDRAWAL SYMPTOM - Treatment Hospital Course: Detox Protocol Followed, Detoxed Safely, Responded well, Discharged Condition Good, Rehab Referral Accepted Patient has Accepted a Rehab Referral to: [facility] - Medication Discharge Medications: Ambulatory Orders Clonidine HCl [Catapres -] 0.1 mg PO BID 11/30/16 Propranolol HCl [Propranolol HCl ER] 60 mg PO DAILY 11/30/16 Buspirone HCl [Buspar -] 10 mg PO BID #60 tablet 12/03/16 Quetiapine Fumarate [Seroquel] 100 mg PO HS #30 tablet 12/03/16 Polyvinyl Alcohol [Artificial Tears] 1 drop OS BID 02/02/17 Buspirone HCl [Buspar -] 10 mg PO BID #60 tablet 02/03/17 Quetiapine Fumarate [Seroquel] 100 mg PO HS #30 tablet 02/03/17 - Diagnosis (1) Opioid dependence with withdrawal Current Visit: Yes Status: Acute (2) Weight decreased Current Visit: No Status: Acute (3) Hepatitis C Current Visit: No Status: Chronic Qualifiers: Viral hepatitis chronicity: chronic (4) Hypothyroid Current Visit: No Status: Chronic (5) Migraine Current Visit: No Status: Chronic Qualifiers: Migraine type: without aura (6) PTSD (post-traumatic stress disorder) Current Visit: No Status: Chronic (7) Nicotine dependence Current Visit: No Status: Chronic Qualifiers: Nicotine product type: cigarettes Substance use status: uncomplicated Qualified Code(s): F17.210 - Nicotine dependence, cigarettes, uncomplicated (8) Bipolar disorder Current Visit: No Status: Suspected - AMA Did Patient Leave Against Medical Advice: No
[2017-02-07 10:53] VITALS: BP 109/70; PULSE 72; TEMP 97.7
== END 2017-02-07 13:57 | disposition other institution (70) | DRG 773 ==
LOC: YASAS 13:46 → Y6N 17:33
PROVIDERS: ADMIT Internal Medicine; ATTEND Internal Medicine
PROC: HZ2ZZZZ Detoxification Services for Substance Abuse Treatment (ICD-10-PCS; principal; 2017-02-02)
DX: F11.23 Opioid dependence with withdrawal (principal); F17.210 Nicotine dependence, cigarettes, uncomplicated; F43.10 Post-traumatic stress disorder, unspecified; F31.9 Bipolar disorder, unspecified; F19.24 Other psychoactive substance dependence with psychoactive substance-induced mood disorder; B18.2 Chronic viral hepatitis C; E03.9 Hypothyroidism, unspecified; Z87.898 Personal history of other specified conditions
CPT/HCPCS: 36415; 80053; 81003; 84439; 84443; 84479; 85027; 86593; 93005; 93010

== ENCOUNTER 2017-02-07 13:59 | Inpatient (IN) | payer BC ==
[2017-02-07 14:32] VITALS: BP 99/63; PULSE 69; TEMP 98.4
--- NOTE | 2017-02-07 14:52 | HP ---
[facility] Rehab Assess/Revision - Admission History Admitted to Rehab from: [facility] Date of Admission to Rehab: 02/07/17 - Vital signs Vital Signs: Vital Signs Period Temp Pulse Resp BP Sys/[place]nally Pulse Ox Last 24 Hr 98.4 F 69 19 99/63 - Findings Detox History & Physical reviewed: Yes Concur with findings: Yes Comments/Additional Findings: FOR REHAB PROTOCOL
[2017-02-07] MEDS ORDERED: LOPERAMIDE HCL 2 MG CAPSULE PO PRN (14:53)
[2017-02-07] MEDS ORDERED: MAG HYDROX/AL HYDROX/SIMETH 30 ML UNIT-DOSE CUP PO PRN (14:53)
[2017-02-07] MEDS ORDERED: IBUPROFEN 400 MG TABLET (FP) PO PRN (14:53)
[2017-02-07] MEDS ORDERED: hydrOXYzine PAMOATE 25 MG CAPSULE (FP) PO PRN (14:53)
[2017-02-07] MEDS ORDERED: MAGNESIUM HYDROX 2400MG/30ML ORAL SUSPENSION 30 ML CUP PO PRN (14:53)
[2017-02-07] MEDS ORDERED: P-EPHED 60MG/TRIPROLIDI 2.5MG TABLET PO PRN (14:53)
[2017-02-07] MEDS ORDERED: diphenhydrAMINE HCL 50 MG CAPSULE PO PRN (14:53)
[2017-02-07] MEDS ORDERED: guaiFENesin/D-METHORPHAN HB 10 ML UNIT-DOSE CUPS PO PRN (14:53)
[2017-02-07] MEDS ORDERED: ACETAMINOPHEN 325 MG TABLET (FP) PO PRN (14:53)
[2017-02-07] MEDS ORDERED: MENTHOL/PHENOL 1 EACH UD MM PRN (14:53)
[2017-02-07] MEDS ORDERED: MAGNESIUM CITRATE 300 ML BOTTLE PO PRN (14:53)
[2017-02-07] MEDS ORDERED: THIAMINE HCL 100 MG TABLET (FP) PO SCH (22:00)
[2017-02-07] MEDS ORDERED: busPIRone HCL 10 MG TABLET (FP) PO SCH (22:00)
[2017-02-07] MEDS ORDERED: ARTIFICIAL TEARS (POLYVINYL ALCOHOL 1.4%) OPTH DROPS OU SCH (22:00)
[2017-02-07] MEDS ORDERED: QUEtiapine FUMARATE 100 MG TABLET (FP) PO SCH (22:00)
[2017-02-08] MEDS ORDERED: NICOTINE 14 MG/24 HOURS TOPICAL PATCH TD SCH (10:00)
[2017-02-08] MEDS ORDERED: PRENATAL VITAMINS W/ FOLIC ACID TABLET (FP) PO SCH (10:00)
== END 2017-02-07 17:25 | disposition left against medical advice (07) | DRG 770 ==
LOC: YASAS 13:59 → Y3W 14:00
PROVIDERS: ADMIT Psychiatry & Neurology Psychiatry; ATTEND Psychiatry & Neurology Psychiatry
PROC: HZ42ZZZ Group Counseling for Substance Abuse Treatment, Cognitive-Behavioral (ICD-10-PCS; principal; 2017-02-07)
DX: F11.20 Opioid dependence, uncomplicated (principal); F17.210 Nicotine dependence, cigarettes, uncomplicated; F43.10 Post-traumatic stress disorder, unspecified; F31.9 Bipolar disorder, unspecified; B18.2 Chronic viral hepatitis C; E03.9 Hypothyroidism, unspecified; Z87.898 Personal history of other specified conditions

== ENCOUNTER 2019-05-06 12:24 | Inpatient (IN) | payer BC ==
[2019-05-06 13:52] VITALS: BMI 25.4
--- NOTE | 2019-05-06 15:49 | HP ---
COWS - Scale Resting Pulse: 0= [place] 80 or Below Sweatin=Flushed/Facial Moisture Restless Observation: 1= Difficult to Sit Still Pupil Size: 1= Pupils >than Normal Bone or Joint Aches: 2= Severe Diffuse Aches Runny Nose/ Eye Tearin= Runny Nose/Eyes GI Upset > 30mins: 2= Nausea/Diarrhea Tremor Observation: 2= Slight Tremor Visible Yawning Observation: 1= 1-2x During Session Anxiety or Irritability: 1=Feels Anxious/Irritable Goose Flesh Skin: 3=Piloerection COWS Score: 17 CIWA Score - Admission Criteria OASAS Guidelines: Admission for Medically Managed Detox: Requires at least one of the followin. CIWA greater than 12 2. Seizures within the past 24 hours 3. Delirium tremens within the past 24 hours 4. Hallucinations within the past 24 hours 5. Acute intervention needed for co occurring medical disorder 6. Acute intervention needed for co occurring psychiatric disorder 7. Severe withdrawal that cannot be handled at a lower level of care (continued vomiting, continued diarrhea, abnormal vital signs) requiring intravenous medication and/or fluids 8. Admitting History and Physical - Past Medical History ...LMP: 02/15/16 - Smoking History Smoking history: Current every day smoker Have you smoked in the past 12 months: Yes Aproximately how many cigarettes per day: 10 - Alcohol/Substance Use Hx Alcohol Use: No Admission ROS [facility] Chief Complaint: I need detox from heroin Allergies/Adverse Reactions: Allergies Allergy/AdvReac Type Severity Reaction Status Date / Time No Known Allergies Allergy Verified 02/02/17 16:37 History of Present Illness: 54 year old patient presents for detox from heroin, her last treatment was in 2017. She denies ever overdosing on heroin. Exam Limitations: No Limitations - Ebola screening Have you traveled outside of the country in the last 21 days: No (N) Have you had contact with anyone from an Ebola affected area: No Have you been sick,other than usual withdrawal symptoms: No Do you have a fever: No - Review of Systems Constitutional: Chills, Loss of Appetite, Changes in sleep, Unintentional Wgt. Loss EENT: reports: Blurred Vision, Nose Congestion, Dental Problems (teeth falling out) Respiratory: reports: Cough (related to smoking), SOB with Exertion Cardiac: reports: No Symptoms Reported GI: reports: Poor Fluid Intake, Abdominal cramping Musculoskeletal: reports: Back Pain, Joint Pain, Muscle Pain, Muscle Weakness Integumentary: reports: Flushing Neuro: reports: Headache, Tremors Endocrine: reports: No Symptoms Reported Hematology: reports: No Symptoms Reported Psychiatric: reports: Anxious, Depressed Other Systems: Reviewed and Negative Patient History - Patient Medical History Hx Anemia: No Hx Asthma: No Hx Chronic Obstructive Pulmonary Disease (COPD): No Hx Cancer: No Hx Cardiac Disorders: No Hx Congestive Heart Failure: No Hx Hypertension: No Hx Hypercholesterolemia: No Hx Pacemaker: No HX Cerebrovascular Accident: No Hx Seizures: No Hx Dementia: No Hx Diabetes: No Hx Gastrointestinal Disorders: No Hx Liver Disease: No Hx Genitourinary Disorders: No Hx Sexually Transmitted Disorders: No Hx Renal Disease (ESRD): No Hx Thyroid Disease: No (hypothyroidism) Hx Human Immunodeficiency Virus (HIV): No Hx Hepatitis C: Yes (treated) Hx Depression: Yes Hx Suicide Attempt: No Hx Bipolar Disorder: Yes Hx Schizophrenia: No - Patient Surgical History Past Surgical History: Yes Hx Neurologic Surgery: No Hx Cataract Extraction: No Hx Cardiac Surgery: No Hx Lung Surgery: No Hx Breast Surgery: No Hx Breast Biopsy: No Hx Abdominal Surgery: No Hx Appendectomy: Yes (remote hx) Hx Cholecystectomy: No Hx Genitourinary Surgery: No Hx Section: No Hx Orthopedic Surgery: No Other Surgical History: right eye sx in 10/2015 Anesthesia Reaction: No - PPD History Previous Implant?: Yes Documented Results: Negative w/proof Implanted On Prior [facility] Admission?: Yes Date: 02/04/17 Results: 0 MM PPD to be Administered?: Yes - Reproductive History Last Menstrual Period: 02/15/16 - Smoking Cessation Smoking history: Current every day smoker Have you smoked in the past 12 months: Yes Aproximately how many cigarettes per day: 10 Cigars Per Day: 0 Hx Chewing Tobacco Use: No Initiated information on smoking cessation: Yes 'Breaking Loose' booklet given: 05/06/19 - Substances abused Heroin Other (specify): sniff Frequency: Daily Amount used: 3 to 4 bags Age of first use: 13 Date of last use: 05/06/19 Admission Physical Exam BHS - Vital Signs Vital Signs: Vital Signs - 24 hr 05/06/19 13:37 Temperature 99 F Pulse Rate 80 Respiratory 18 Rate Blood Pressure 165/101 H - Physical General Appearance: Yes: No Apparent Distress HEENTM: Yes: Hearing grossly Normal, Normocephalic, Normal Voice, [place] Respiratory: Yes: Chest Non-Tender, Lungs Clear, Normal Breath Sounds, No Respiratory Distress, No Accessory Muscle Use Breast: Yes: Breast Exam Deferred Cardiology: Yes: Regular Rhythm, Regular Rate Genitourinary: Yes: Within Normal Limits Back: Yes: Normal Inspection Musculoskeletal: Yes: full range of Motion Extremities: Yes: Normal Capillary Refill, Non-Tender, Tremors Neurological: Yes: professor of practice II-XII NML intact, Fully Oriented, Alert, Normal Mood/ Affect, Normal Response Integumentary: Yes: Clammy Lymphatic: Yes: Within Normal Limits - Diagnostic (1) Opioid dependence with withdrawal Current Visit: Yes Status: Acute (2) Cocaine dependence Current Visit: Yes Status: Acute Qualifiers: Substance use status: uncomplicated Qualified Code(s): F14.20 - Cocaine dependence, uncomplicated (3) Hepatitis C Current Visit: Yes Status: Chronic Qualifiers: Viral hepatitis chronicity: chronic Hepatic coma status: without hepatic coma Qualified Code(s): B18.2 - Chronic viral hepatitis C (4) Hypothyroid Current Visit: Yes Status: Chronic Qualifiers: Hypothyroidism type: acquired Qualified Code(s): E03.9 - Hypothyroidism, unspecified (5) Nicotine dependence Current Visit: Yes Status: Acute Qualifiers: Nicotine product type: cigarettes Substance use status: uncomplicated Qualified Code(s): F17.210 - Nicotine dependence, cigarettes, uncomplicated Cleared for Admission S - Detox or Rehab [facility] Level of Care: Medically Managed Detox Regimen/Protocol: Methadone Claeared for Rehab Admission: No Breathalyzer - Breathalyzer Breathalyzer: 0 Urine Drug Screen - Test Device Lot number: [id number] Expiration date: 01/18/21 - Control Is test valid?: Yes - Results Drug screen NEGATIVE: No Urine drug screen results: FEN-Fentanyl, MOP-Opiates Inpatient Rehab Admission - Rehab Decision to Admit Inpatient rehab admission?: No
[2019-05-06] MEDS ORDERED: MAG HYDROX/AL HYDROX/SIMETH 30 ML UNIT-DOSE CUP PO PRN (15:55)
[2019-05-06] MEDS ORDERED: IBUPROFEN 400 MG TABLET (FP) PO PRN (15:55)
[2019-05-06] MEDS ORDERED: MAGNESIUM HYDROX 2400MG/30ML ORAL SUSPENSION 30 ML CUP PO PRN (15:55)
[2019-05-06] MEDS ORDERED: MAGNESIUM CITRATE 300 ML BOTTLE PO PRN (15:55)
[2019-05-06] MEDS ORDERED: NALOXONE HCL 0.4 MG/ML VIAL IM PRN (15:55)
[2019-05-06] MEDS ORDERED: ACETAMINOPHEN 325 MG TABLET (FP) PO PRN (15:55)
[2019-05-06] MEDS ORDERED: METHADONE HCL 10 MG TABLET (FOR DETOX USE ONLY) PO ONE (15:55)
[2019-05-06] MEDS ORDERED: cloNIDine HCL 0.1 MG TABLET PO PRN (15:55)
[2019-05-06] MEDS ORDERED: MENTHOL/PHENOL 1 EACH UD MM PRN (15:55)
[2019-05-06] MEDS ORDERED: BISMUTH SUBSALICYLATE 524 MG/30 ML UD PO PRN (15:55)
[2019-05-06] MEDS: THIAMINE HCL 100 MG TABLET (FP) PO SCH (22:19)
[2019-05-06] MEDS: MELATONIN 5 MG TABLETS PO PRN (22:19)
[2019-05-06] MEDS: METHOCARBAMOL 500 MG TABLET PO PRN (22:20)
[2019-05-07] MEDS ORDERED: METHADONE HCL 5 MG TABLET (FOR DETOX USE ONLY) PO ONE (10:00)
[2019-05-07] MEDS: PRENATAL VITAMINS W/ FOLIC ACID TABLET (FP) PO SCH (10:08)
[2019-05-07] MEDS: amLODIPine BESYLATE 5 MG TABLET (FP) PO SCH (10:08)
[2019-05-07] MEDS: NICOTINE POLACRILEX 2 MG GUM BUC PRN ×3 (10:09→22:09)
--- NOTE | 2019-05-07 10:42 | PN ---
BHS COWS - Scale Resting Pulse: 0= [place] 80 or Below Sweatin= Chills/Flushing Restless Observation: 0= Sits Still Pupil Size: 1= Pupils >than Normal Bone or Joint Aches: 2= Severe Diffuse Aches Runny Nose/ Eye Tearin= Runny Nose/Eyes GI Upset > 30mins: 2= Nausea/Diarrhea Tremor Observation of Outstretched Hands: 2= Slight Tremor Visible Yawning Observation: 1= 1-2x During Session Anxiety or Irritability: 2=Irritable/Anxious Goose Flesh Skin: 3=Piloerection COWS Score: 16 [facility] Progress Note (SOAP) Subjective: 54 years old male admitted on 05/06/19 for opiate withdrawal sx management treated with methadone detox regimen patient tolerated well ate breakfast resting on bed feeling tired limited conversation with staff Objective: 05/07/19 10:42 Vital Signs Temperature 98.1 F 05/07/19 09:38 Pulse Rate 54 L 05/07/19 09:38 Respiratory Rate 18 05/07/19 09:38 Blood Pressure 116/73 05/07/19 09:38 O2 Sat by Pulse Oximetry (%) 05/07/19 10:42 lab pending Assessment: 05/07/19 10:42 opiate withdrawal sx Plan: continue methadone detox regimen
[2019-05-07 11:00] LABS: HEMATOCRIT 39.9 % (32.4-45.2); HEMOGLOBIN 13.1 GM/dL (10.7-15.3); MCH 28.1 pg (25.7-33.7); MCHC 32.8 g/dl (32.0-36.0); MEAN CELL VOLUME 85.5 fl (80-96); MEAN PLT VOLUME 9.9 fl (7.5-11.1); PLATELET COUNT 193 K/MM3 (134-434); RBC 4.67 M/mm3 (3.60-5.2); RDW 13.6 % (11.6-15.6); WHITE BLOOD COUNT 6.4 K/mm3 (4.0-10.0)
[2019-05-07 11:04] LABS: ALBUMIN 3.5 g/dl (3.4-5.0); BILIRUBIN,TOTAL 0.3 mg/dL (0.2-1); BLOOD UREA NITROGEN 12.6 mg/dL (7-18); CALCIUM 8.6 mg/dL (8.5-10.1); CREATININE 0.7 mg/dL (0.55-1.3); TOT PROT 6.5 g/dl (6.4-8.2)
--- NOTE | 2019-05-07 16:47 | EKG ---
Test Reason : Blood Pressure : / mmHG Vent. Rate : 065 BPM Atrial Rate : 065 BPM P-R Int : 144 ms QRS Dur : 110 ms QT Int : 400 ms P-R-T Axes : 030 -04 020 degrees QTc Int : 416 ms NORMAL SINUS RHYTHM NONSPECIFIC ST AND T WAVE ABNORMALITY ABNORMAL ECG Confirmed by MICHAEL FOWLER MD ([id number]) on 05/07/2019 4:47:29 PM Referred By: Confirmed By:MICHAEL FOWLER MD
[2019-05-07] MEDS: ACETAMINOPHEN 325 MG TABLET (FP) PO PRN (19:02)
[2019-05-07] MEDS: THIAMINE HCL 100 MG TABLET (FP) PO SCH (22:08)
[2019-05-07] MEDS: METHOCARBAMOL 500 MG TABLET PO PRN (22:08)
[2019-05-08] MEDS: PRENATAL VITAMINS W/ FOLIC ACID TABLET (FP) PO SCH (09:49)
[2019-05-08] MEDS: NICOTINE POLACRILEX 2 MG GUM BUC PRN ×3 (09:49→19:11)
[2019-05-08] MEDS: amLODIPine BESYLATE 5 MG TABLET (FP) PO SCH (09:49)
[2019-05-08] MEDS ORDERED: METHADONE HCL 10 MG TABLET (FOR DETOX USE ONLY) PO ONE (10:00)
--- NOTE | 2019-05-08 12:32 | PN ---
[facility] COWS - Scale Resting Pulse: 0= [place] 80 or Below Sweatin= No chills or Flushing Restless Observation: 0= Sits Still Pupil Size: 1= Pupils >than Normal Bone or Joint Aches: 2= Severe Diffuse Aches Runny Nose/ Eye Tearin= Nasal Congestion GI Upset > 30mins: 1= Stomach Cramp Tremor Observation of Outstretched Hands: 2= Slight Tremor Visible Yawning Observation: 2= >3x During Session Anxiety or Irritability: 2=Irritable/Anxious Goose Flesh Skin: 0=Smooth Skin COWS Score: 11 S Progress Note (SOAP) Subjective: 54 years old female admitted on 05/06/19 for opiate withdrawal sx management treated with methadone detox regimen feeling better today discuss medication assisted treatment program order picker narcan from pharmacy Objective: 05/08/19 12:32 Vital Signs Temperature 98.2 F 05/08/19 09:48 Pulse Rate 57 L 05/08/19 09:48 Respiratory Rate 18 05/08/19 09:48 Blood Pressure 115/77 05/08/19 09:48 O2 Sat by Pulse Oximetry (%) Laboratory Last Values WBC 6.4 K/mm3 (4.0-10.0) 05/07/19 07:40 RBC 4.67 M/mm3 (3.60-5.2) 05/07/19 07:40 Hgb 13.1 GM/dL (10.7-15.3) 05/07/19 07:40 Hct 39.9 % (32.4-45.2) 05/07/19 07:40 MCV 85.5 fl (80-96) 05/07/19 07:40 MCH 28.1 pg (25.7-33.7) 05/07/19 07:40 MCHC 32.8 g/dl (32.0-36.0) 05/07/19 07:40 RDW 13.6 % (11.6-15.6) 05/07/19 07:40 Plt Count 193 K/MM3 (134-434) D 05/07/19 07:40 MPV 9.9 fl (7.5-11.1) D 05/07/19 07:40 Sodium 140 mmol/L (136-145) 05/07/19 07:40 Potassium 4.0 mmol/L (3.5-5.1) 05/07/19 07:40 Chloride 108 mmol/L (98-107) H 05/07/19 07:40 Carbon Dioxide 27 mmol/L (21-32) 05/07/19 07:40 Anion Gap 5 MMOL/L (8-16) L 05/07/19 07:40 BUN 12.6 mg/dL (7-18) 05/07/19 07:40 Creatinine 0.7 mg/dL (0.55-1.3) 05/07/19 07:40 Est GFR (CKD-EPI)AfAm 112.26 05/07/19 07:40 Est GFR (CKD-EPI)NonAf 96.86 05/07/19 07:40 Random Glucose 98 mg/dL (74-106) 05/07/19 07:40 Calcium 8.6 mg/dL (8.5-10.1) 05/07/19 07:40 Total Bilirubin 0.3 mg/dL (0.2-1) 05/07/19 07:40 AST 12 U/L (15-37) L 05/07/19 07:40 ALT 11 U/L (13-61) L 05/07/19 07:40 Alkaline Phosphatase 97 U/L (45-117) 05/07/19 07:40 Total Protein 6.5 g/dl (6.4-8.2) 05/07/19 07:40 Albumin 3.5 g/dl (3.4-5.0) 05/07/19 07:40 RPR Titer Nonreactive (NONREACTIVE) 05/07/19 07:50 lab noted Assessment: 05/08/19 12:32 opiate withdrawal sx Plan: continue methadone detox regimen
[2019-05-08] MEDS: ACETAMINOPHEN 325 MG TABLET (FP) PO PRN (19:10)
[2019-05-08] MEDS: THIAMINE HCL 100 MG TABLET (FP) PO SCH (22:24)
[2019-05-08] MEDS: MELATONIN 5 MG TABLETS PO PRN (22:24)
[2019-05-08] MEDS: METHOCARBAMOL 500 MG TABLET PO PRN (22:24)
[2019-05-09] MEDS ORDERED: METHADONE HCL 5 MG TABLET (FOR DETOX USE ONLY) PO ONE ×2 (06:00→09:48)
--- NOTE | 2019-05-09 09:17 | DS ---
[facility] Detox Discharge Summary Admission Date: 05/06/19 Discharge Date: 05/09/19 - History Present History: Opioid Dependence Additional Comments: 54 years old female admitted oin 05/06/19 for opiate withdrawal sx management treated with methadone detox regimen patient is alert oriented x 3 cardiac S1S2 regular rate rhythm respiratory clear lung bilaterally on auscultation extremities full range of motion Pertinent Past History: patient has bp elevation during the detox period treated with amlodipine 5 mg po daily patient tolerated well patient has appointment with her community primary care provider as well as aftercare with [facility] for behavior and psychosocial therapies for opiate addiction patient agrees to consider medication assisted treatment program agrees to bead picker narcan - Physical Exam Results Vital Signs: Vital Signs Temperature 97.8 F 05/09/19 06:19 Pulse Rate 55 L 05/09/19 06:19 Respiratory Rate 17 05/09/19 07:30 Blood Pressure 114/79 05/09/19 06:19 O2 Sat by Pulse Oximetry (%) Pertinent Admission Physical Exam Findings: opiate withdrawal sx Laboratory Last Values WBC 6.4 K/mm3 (4.0-10.0) 05/07/19 07:40 RBC 4.67 M/mm3 (3.60-5.2) 05/07/19 07:40 Hgb 13.1 GM/dL (10.7-15.3) 05/07/19 07:40 Hct 39.9 % (32.4-45.2) 05/07/19 07:40 MCV 85.5 fl (80-96) 05/07/19 07:40 MCH 28.1 pg (25.7-33.7) 05/07/19 07:40 MCHC 32.8 g/dl (32.0-36.0) 05/07/19 07:40 RDW 13.6 % (11.6-15.6) 05/07/19 07:40 Plt Count 193 K/MM3 (134-434) D 05/07/19 07:40 MPV 9.9 fl (7.5-11.1) D 05/07/19 07:40 Sodium 140 mmol/L (136-145) 05/07/19 07:40 Potassium 4.0 mmol/L (3.5-5.1) 05/07/19 07:40 Chloride 108 mmol/L (98-107) H 05/07/19 07:40 Carbon Dioxide 27 mmol/L (21-32) 05/07/19 07:40 Anion Gap 5 MMOL/L (8-16) L 05/07/19 07:40 BUN 12.6 mg/dL (7-18) 05/07/19 07:40 Creatinine 0.7 mg/dL (0.55-1.3) 05/07/19 07:40 Est GFR (CKD-EPI)AfAm 112.26 05/07/19 07:40 Est GFR (CKD-EPI)NonAf 96.86 05/07/19 07:40 Random Glucose 98 mg/dL (74-106) 05/07/19 07:40 Calcium 8.6 mg/dL (8.5-10.1) 05/07/19 07:40 Total Bilirubin 0.3 mg/dL (0.2-1) 05/07/19 07:40 AST 12 U/L (15-37) L 05/07/19 07:40 ALT 11 U/L (13-61) L 05/07/19 07:40 Alkaline Phosphatase 97 U/L (45-117) 05/07/19 07:40 Total Protein 6.5 g/dl (6.4-8.2) 05/07/19 07:40 Albumin 3.5 g/dl (3.4-5.0) 05/07/19 07:40 RPR Titer Nonreactive (NONREACTIVE) 05/07/19 07:50 lab noted - Treatment Hospital Course: Detox Protocol Followed, Detoxed Safely, Responded well, Discharged Condition Good, Rehab Referral Accepted Patient has Accepted a Rehab Referral to: [facility] - Medication Discharge Medications: Ambulatory Orders Propranolol HCl [Propranolol HCl ER] 60 mg PO DAILY 11/30/16 cloNIDine HCL [Catapres -] 0.1 mg PO BID 11/30/16 Quetiapine Fumarate [Seroquel -] 100 mg PO HS #30 tablet 12/03/16 Polyvinyl Alcohol [Artificial Tears] 1 drop OS BID 02/02/17 Buspirone HCl [Buspar -] 10 mg PO BID #60 tablet 02/03/17 Amlodipine Besylate 5 mg PO DAILY 05/06/19 Sumatriptan Succinate [Imitrex -] 50 tab PO PRN 11/16/19 Naloxone HCl [Narcan] 4 mg NS ASDIR PRN #1 spray 05/07/19 - Diagnosis (1) Nicotine dependence Current Visit: Yes Status: Acute Qualifiers: Nicotine product type: cigarettes Substance use status: in withdrawal Qualified Code(s): F17.213 - Nicotine dependence, cigarettes, with withdrawal (2) Opioid dependence with withdrawal Current Visit: Yes Status: Acute (3) Hepatitis C Current Visit: Yes Status: Chronic Qualifiers: Viral hepatitis chronicity: chronic Hepatic coma status: without hepatic coma Qualified Code(s): B18.2 - Chronic viral hepatitis C (4) Substance induced mood disorder Current Visit: Yes Status: Suspected (5) Borderline hypertension Current Visit: Yes Status: Chronic - AMA Did Patient Leave Against Medical Advice: No COWS (PN) - Opiate Withdrawal Resting Pulse: 0= [place] 80 or Below Sweatin= Chills/Flushing Restless Observation: 0= Sits Still Pupil Size: 0= Normal to Room Light Bone or Joint Aches: 0= None Runny Nose/ Eye Tearin= Nasal Congestion GI Upset > 30mins: 1= Stomach Cramp Tremor Observation of Outstretched Hands: 1= Tremor [place], Not Seen Yawning Observation: 1= 1-2x During Session Anxiety or Irritability: 1=Feels Anxious/Irritable Goose Flesh Skin: 0=Smooth Skin COWS Score: 6
[2019-05-09] MEDS: amLODIPine BESYLATE 5 MG TABLET (FP) PO SCH (09:34)
[2019-05-09] MEDS: PRENATAL VITAMINS W/ FOLIC ACID TABLET (FP) PO SCH (09:35)
[2019-05-09] MEDS ORDERED: METHADONE HCL 10 MG TABLET PO ONE (09:41)
[2019-05-09 09:45] VITALS: BP 138/90; PULSE 63; TEMP 97.2
== END 2019-05-09 11:02 | disposition home or self-care (01) | DRG 773 ==
LOC: YASAS 12:24 → Y3N 16:12
PROVIDERS: ADMIT Allergy & Immunology; ATTEND Allergy & Immunology
PROC: HZ2ZZZZ Detoxification Services for Substance Abuse Treatment (ICD-10-PCS; principal; 2019-05-06)
DX: F11.23 Opioid dependence with withdrawal (principal); F17.213 Nicotine dependence, cigarettes, with withdrawal; F19.24 Other psychoactive substance dependence with psychoactive substance-induced mood disorder; B18.2 Chronic viral hepatitis C; R03.0 Elevated blood-pressure reading, without diagnosis of hypertension; E03.9 Hypothyroidism, unspecified
CPT/HCPCS: 36415; 80053; 85027; 86593; 93005; 93010; J0735